=== PATIENT | female | born 1975 | race Caucasian/White ===

== ENCOUNTER 2017-04-01 23:05 | Emergency (ER) | payer OTHER ==
[~2017-04-01] VITALS: Ht 160 cm; Wt 64.0 kg
[2017-04-02] MEDS ORDERED: ACETAMINOPHEN 325MG TABLET PO ONE (01:00)
[2017-04-02 05:22] VITALS: BP 115/65
== END 2017-04-02 05:26 | disposition home or self-care (01) ==
LOC: ER 04-02 01:50
DX: O20.9 Hemorrhage in early pregnancy, unspecified (principal); R10.30 Lower abdominal pain, unspecified; F32.9 Major depressive disorder, single episode, unspecified; F41.9 Anxiety disorder, unspecified; F12.10 Cannabis abuse, uncomplicated; Z3A.13 13 weeks gestation of pregnancy
CPT/HCPCS: 36415; 76801; 76817; 84702; 86850; 86900; 86901; 99285; Z7610